=== PATIENT | male | born 1990 | race Two or more races ===

== ENCOUNTER 2018-12-02 20:58 | Emergency (ER) | payer OTHER ==
[~2018-12-02] VITALS: Ht 182.9 cm; Wt 99.8 kg
[2018-12-02] MEDS ORDERED: AZITHROMYCIN 250 MG TABLET ONE (21:25)
[2018-12-02] MEDS ORDERED: CEFTRIAXONE 500 MG VIAL ONE (21:25)
[2018-12-02] MEDS ORDERED: LIDOCAINE HCL 1% 20 ML VIAL ONE (21:26)
[2018-12-02] MEDS ORDERED: CEFTRIAXONE 500 MG VIAL IM ONE (21:30)
[2018-12-02] MEDS ORDERED: AZITHROMYCIN 250 MG TABLET PO ONE (21:30)
--- NOTE | 2018-12-02 21:40 | NUR ---
Patient discharged to home in stable conditon. Written and verbal after care instructions given. Patient verbalizes understanding of instructions. Pt walked out of ER in stable gait. No acute distress noted. All belongings w pt. VSS.
[2018-12-02 21:41] VITALS: BP 136/77
[2018-12-05 00:13] LABS: *GC NAA Negative (Negative); *TRIC.VAG. NAA Negative (Negative)
== END 2018-12-02 21:42 | disposition home or self-care (01) ==
LOC: ER 21:00
DX: N34.2 Other urethritis (principal)
CPT/HCPCS: 87491; 96372; 99283; J0696; J3490; A4663; Q0144